=== PATIENT | male | born 1990 | race Two or more races ===

== ENCOUNTER 2018-01-22 18:00 | Emergency (ER) | payer OTHER ==
[2018-01-22] MEDS ORDERED: DIPHTH,PERTUSS(ACELL),TET TOX 0.5 ML DISP.SYRIN. VAX IM ONE (20:00)
--- NOTE | 2018-01-22 20:17 | PHYS DOC ---
Adult General Chief Complaint Chief Complaint: LACERATION/AVULSION HPI HPI Patient is a 27 year old male presents the ED complaining of head injury 6 hours ago. Patient states that around 2 PM a garage door came down and hit him in the head. States he suffered a laceration. Complains of pain to head and neck. Describes the pain as sharp. Rates the pain as 5 out of 10. Denies LOC, vision changes, nausea/vomiting, dizziness, weakness, chest pain, shortness of breath or use of blood thinners. Patient shaved his head prior to arrival. Review of Systems Review of Systems Constitutional: Denies fever or chills [] Eyes: Denies change in visual acuity, redness, or eye pain [] HENT: Denies nasal congestion or sore throat [] Respiratory: Denies cough or shortness of breath [] Cardiovascular: No additional information not addressed in HPI [] GI: Denies abdominal pain, nausea, vomiting, bloody stools or diarrhea [] : Denies dysuria or hematuria [] Musculoskeletal: Denies back pain or joint pain [] Integument: Denies rash or skin lesions [] Neurologic: Denies headache, focal weakness or sensory changes [] Endocrine: Denies polyuria or polydipsia [] All other systems were reviewed and found to be within normal limits, except as documented in this note. Current Medications Current Medications Current Medications Medications (Trade) Dose Ordered Sig/Tomeka Start Time Stop Time Status Last Admin Dose Admin Acetaminophen/ Hydrocodone Bitart (Lortab 5/325) 1 tab 1X ONCE 01/22/18 20:45 01/22/18 20:46 DC 01/22/18 20:56 1 TAB Diphtheria/ Tetanus/Acell Pertussis (Boostrix) 0.5 ml ONCE ONCE 01/22/18 20:00 01/22/18 20:27 DC 01/22/18 20:56 0.5 ML Allergies Allergies Allergies Coded Allergies Type Severity Reaction Last Updated Verified No Known Drug Allergies 01/22/18 No Physical Exam Physical Exam Constitutional: Well developed, well nourished, no acute distress, non-toxic appearance. [] HENT: Normocephalic, 4 cm left parietal laceration. bilateral external ears normal, oropharynx moist, no oral exudates, nose normal. [] Eyes: PERRLA, EOMI, conjunctiva normal, no discharge. [] Neck: Normal range of motion, mild right lateral cervical tenderness, supple, no stridor. [] Cardiovascular:Heart rate regular rhythm, no murmur [] Lungs & Thorax: Bilateral breath sounds clear to auscultation [] Abdomen: Bowel sounds normal, soft, no tenderness, no masses, no pulsatile masses. [] Skin: Warm, dry, no erythema, no rash. [] Back: No tenderness, no CVA tenderness. [] Extremities: No tenderness, no cyanosis, no clubbing, ROM intact, no edema. [] Neurologic: Alert and oriented X 3, normal motor function, normal sensory function, no focal deficits noted. [] Psychologic: Affect normal, judgement normal, mood normal. [] EKG EKG [] Radiology/Procedures Radiology/Procedures PROCEDURE: CT HEAD AND CERVICAL SPINE WO CT brain without contrast, CT cervical spine without contrast. HISTORY: Head injury, scalp laceration CT brain CT scan of brain was done without contrast. There is no intracranial hemorrhage or subdural hematoma. Ventricles are normal in size. There is no mass or shift of the midline. An acute CVA is not identified. There is no skull fracture. Visualized sinuses are clear. IMPRESSION: 1. No intracranial hemorrhage or acute finding noted. End impression CT cervical spine Axial CT images were obtained through the cervical spine. Sagittal and coronal reconstructed images were reviewed. C-spine is in normal alignment. A fracture is not identified. There is no disc protrusion evident. Thyroid is homogeneous. IMPRESSION: 1. No fracture is noted in the cervical spine.[] Course & Med Decision Making Course & Med Decision Making Pertinent Labs and Imaging studies reviewed. (See chart for details) []Discussed imaging findings with patient. Patient's pain improved. Laceration repaired. No complications. Tetanus updated. Discussed symptomatic treatment and follow-up for wound reevaluation in 3 days. Provided contact information/ education. Discussed reasons to return to the ED. Patient understands and agrees with plan. Dragon Disclaimer Dragon Disclaimer This electronic medical record was generated, in whole or in part, using a voice recognition dictation system. Departure Departure Impression: Primary Impression: Head injuries Additional Impression: Laceration of head Disposition: HOME, SELF-CARE Condition: IMPROVED Referrals: NO PCP (PCP) ABIGAIL MAYO MD Patient Instructions: Head Injury, Adult, Staple Care and Removal Scripts Cephalexin (CEPHALEXIN) 500 Mg Capsule 1 CAP PO TID for 7 Days, #21 CAP Prov: CAIT BURGER 01/22/18 Laceration/Wound Repair Laceration/Wound Repair : Wound Location: head Wound's Depth, Shape: superficial Wound Length (cm): 4 Wound Explored: clean Irrigated w/ Saline (ccs): 500 Betadine Prep?: Yes Progress 8 luis a placed. Well-tolerated. No complications. Problem Qualifiers CAIT BURGER Jan 22, 2018 20:17
--- NOTE | 2018-01-22 20:43 | RAD ---
CT brain without contrast, CT cervical spine without contrast. HISTORY: Head injury, scalp laceration CT brain CT scan of brain was done without contrast. There is no intracranial hemorrhage or subdural hematoma. Ventricles are normal in size. There is no mass or shift of the midline. An acute CVA is not identified. There is no skull fracture. Visualized sinuses are clear. IMPRESSION: 1. No intracranial hemorrhage or acute finding noted. End impression CT cervical spine Axial CT images were obtained through the cervical spine. Sagittal and coronal reconstructed images were reviewed. C-spine is in normal alignment. A fracture is not identified. There is no disc protrusion evident. Thyroid is homogeneous. IMPRESSION: 1. No fracture is noted in the cervical spine. PQRS Compliance Statement: One or more of the following individualized dose reduction techniques were utilized for this examination: 1. Automated exposure control 2. Adjustment of the mA and/or kV according to patient size 3. Use of iterative reconstruction technique Electronically signed by: Jose Mackenzie MD (01/22/2018 8:40 PM) [facility]
[2018-01-22] MEDS ORDERED: HYDROcodone/APAP 5/325MG 1 TAB TABLET PO ONE (20:45)
[2018-01-22] MEDS ORDERED: CEPH500C PO (20:50)
== END 2018-01-22 21:22 | disposition home or self-care (01) ==
LOC: ER 18:00
DX: S01.01XA Laceration without foreign body of scalp, initial encounter (principal); W22.8XXA Striking against or struck by other objects, initial encounter; Y93.89 Activity, other specified; Y92.89 Other specified places as the place of occurrence of the external cause; Y99.8 Other external cause status
CPT/HCPCS: 12002; 70450; 72125; 90471; 90715; 99284